=== PATIENT | female | born 1985 | race Two or more races ===

== ENCOUNTER 2022-07-18 12:06 | Emergency (ER) | payer OTHER ==
[2022-07-18 12:26] VITALS: BP 131/80; PULSE 95; RESP 18; TEMP 98; BMI 35.5
[2022-07-18 15:13] LABS: BASO % 0.5 % (0-2.0); EOS % 3.5 % (0-4.5); HEMATOCRIT 35.6 % (32.4-45.2); HEMOGLOBIN 11.5 GM/dL (10.7-15.3); LYMPH % 16.3 % (8-40); MCH 30.3 pg (25.7-33.7); MCHC 32.2 g/dl (32.0-36.0); MEAN PLT VOLUME 8.2 fl (7.5-11.1); MONO % 5.9 % (3.8-10.2); NEUT % 73.8 % (42.8-82.8); PLATELET COUNT 334 10^3/uL (134-434); RBC 3.79 M/mm3 (3.60-5.2); RDW 13.6 % (11.6-15.6); WHITE BLOOD COUNT 12.1 K/mm3 (4.0-10.0)
[2022-07-18 15:31] LABS: CALCIUM 9.1 mg/dL (8.5-10.1)
[2022-07-18 15:32] LABS: ALBUMIN 2.6 g/dl (3.4-5.0); BLOOD UREA NITROGEN 11.6 mg/dL (7-18)
[2022-07-18 15:35] LABS: CREATININE 0.7 mg/dL (0.55-1.3)
[2022-07-18 15:36] LABS: TOT PROT 6.7 g/dl (6.4-8.2)
[2022-07-18 15:37] LABS: BILIRUBIN,TOTAL 0.2 mg/dL (0.2-1)
[2022-07-18 15:43] LABS: INR 0.91 (0.83-1.09); PROTHROMBIN TIME (PATIENT) 10.4 SEC (9.7-13.0)
[2022-07-18 15:46] LABS: ACTIVATED PTT 29.7 SECONDS (25.2-36.5)
== END 2022-07-18 18:30 | disposition home or self-care (01) ==
LOC: JERFT 12:06
DX: M79.89 Other specified soft tissue disorders (principal)
CPT/HCPCS: 36415; 80053; 85025; 85610; 85730; 86850; 86870; 86900; 86901; 86902; 93970-TC; 99284-25